=== PATIENT | male | born 1995 | race Caucasian/White ===

== ENCOUNTER 2019-04-28 11:01 | Emergency (ER) | payer OTHER ==
[~2019-04-28] VITALS: Ht 175.3 cm; Wt 64.0 kg
[2019-04-28] MEDS ORDERED: OLANZAPINE 5MG TABLET ODT PO ONE (12:00)
[2019-04-28] MEDS ORDERED: LORAZEPAM 1MG TABLET PO ONE (12:00)
[2019-04-28 12:19] LABS: BASOPHILS % 0.3 % (0.0-2.0); EOSINOPHILS % 0.4 % (0.0-5.0); HEMATOCRIT. 43.1 % (42.0-52.0); HEMOGLOBIN. 14.9 g/dL (14.0-18.0); LYMPHOCYTES % 9.8 % (20.0-50.0); MEAN CORPUSCULAR HEMOGLOBIN 30.4 pg (28.0-32.0); MEAN CORPUSCULAR VOLUME 87.7 fL (80.0-94.0); MEAN PLATELET VOLUME 8.2 fl (7.4-10.4); NEUTROPHILS % 83.5 % (40.0-76.0); PLATELET 198 x1000/uL (130-400); RED BLOOD CELL COUNT 4.91 mill/uL (4.7-6.1); RED CELL DISTRIBUTION WIDTH 13.5 % (11.6-14.6)
[2019-04-28 12:21] LABS: CHLORIDE 105 mEq/L (98-107)
[2019-04-28 12:26] LABS: ETHANOL BLOOD < 10 mg/dL
[2019-04-28 13:13] LABS: *AMPHETAMINES SCREEN URINE NEGATIVE (NEGATIVE)
[2019-04-28 13:14] LABS: *BARBITURATES SCREEN URINE NEGATIVE (NEGATIVE); *BENZODIAZEPINES SCREEN URINE NEGATIVE (NEGATIVE); *COCAINE SCREEN URINE NEGATIVE (NEGATIVE); METHADONE URINE SCREEN NEGATIVE (NEGATIVE); OPIATES URINE SCREEN NEGATIVE (NEGATIVE); PHENCYCLIDINE URINE SCREEN NEGATIVE (NEGATIVE)
[2019-04-28 13:15] LABS: CANNABINOID URINE SCREEN NEGATIVE (NEGATIVE)
[2019-04-29] MEDS ORDERED: VENLAFAXINE HCL 37.5MG SR CAPSULE 24HR PO ONE (16:00)
[2019-04-30] MEDS ORDERED: OLANZAPINE 10MG TABLET PO STA (22:58)
[2019-04-30] MEDS ORDERED: LORAZEPAM 1MG TABLET PO ONE (23:00)
[2019-05-02] MEDS ORDERED: LORAZEPAM 1MG TABLET PO ONE (00:45)
[2019-05-02] MEDS ORDERED: OLANZAPINE 5MG TABLET ODT PO ONE (00:45)
[2019-05-02] MEDS ORDERED: LORAZEPAM 1MG TABLET PO NR (01:00)
[2019-05-02] MEDS ORDERED: OLANZAPINE 5MG TABLET ODT PO NR (01:00)
[2019-05-02 12:23] VITALS: BP 110/64
== END 2019-05-02 12:28 | disposition home or self-care (01) ==
LOC: ER 11:01
DX: R45.851 Suicidal ideations (principal); F31.9 Bipolar disorder, unspecified
CPT/HCPCS: 36415; 80048; 80305; 80307; 80320; 80329; 85025; 99284; Z7610; G0480